=== PATIENT | female | born 1935 | race Caucasian/White ===

== ENCOUNTER → 2017-10-13 | Outpatient (CLI) | payer OTHER ==
[~2017-10-13] MED LIST: ASPI325 PO; ASPI81CH PO; AZIT250 PO; AZO CRANBERRY PO; BISA10S PR; BONIVA PO; CALC1.25T PO; CALCA500CH PO; CEFU250 PO; CELE100 PO; CELE200 PO; CEPH500 PO; CHOL10002 PO; ESOM20 PO; FISH1000 PO; FOLI1 PO; GABA100 PO; GABA300 PO; HYDACE5 PO; HYDCHL25 PO; HYDSUL200 PO; IBAN2.5 PO; LISI5 PO; METO25 PO; METO25ER PO; METTREX2.5 PO; MISO100 PO; OMEP20ER PO; POTA10T PO; PRED1 PO; PRED10 PO; TOBR.3OPSO OP; TOCO1000 PO; TORS10 PO; TRIHYD253B PO; VIACTIV SOFT C1 EAC1 PO; calcium PO
== END | disposition home or self-care (01) ==
LOC: LAB EV 13:00 → LAB SHORT 13:00
DX: N39.0 Urinary tract infection, site not specified (principal)
CPT/HCPCS: 87086

== ENCOUNTER 2018-07-24 12:37 | Emergency (ER) | payer OTHER ==
[~2018-07-24] VITALS: Ht 162.6 cm; Wt 65.8 kg
== END 2018-07-24 14:24 | disposition home or self-care (01) ==
LOC: ER 12:37
DX: S81.811A Laceration without foreign body, right lower leg, initial encounter (principal); W22.8XXA Striking against or struck by other objects, initial encounter; Z88.6 Allergy status to analgesic agent; Z88.0 Allergy status to penicillin; Z88.2 Allergy status to sulfonamides; Z88.1 Allergy status to other antibiotic agents; Z79.899 Other long term (current) drug therapy; Z79.52 Long term (current) use of systemic steroids; Z79.82 Long term (current) use of aspirin; I10 Essential (primary) hypertension
CPT/HCPCS: 12002; 90471; 90714; 99282-25

== ENCOUNTER 2018-07-26 06:13 | Observation (INO) | payer OTHER ==
[~2018-07-26] VITALS: Ht 162.6 cm; Wt 59.0 kg
[2018-07-26 06:56] LABS: BASOPHILS ABSOLUTE AUTO 0.03 K/mm3 (0.00-0.23); BASOPHILS PERCENT AUTO 0 % (0-2); EOSINOPHILS ABSOLUTE AUTO 0.64 K/mm3 (0.00-0.68); EOSINOPHILS PERCENT AUTO 7 % (0-6); IMMATURE GRAN ABSOLUTE AUTO 0.04 K/mm3 (0.00-0.10); IMMATURE GRAN PERCENT AUTO 0 % (0-1); LYMPHOCYTES ABSOLUTE AUTO 0.82 K/mm3 (0.84-5.20); LYMPHOCYTES PERCENT AUTO 9 % (21-46); MONOCYTES ABSOLUTE AUTO 0.59 K/mm3 (0.16-1.47); MONOCYTES PERCENT AUTO 6 % (4-13); Mean Corpuscular HGB 34.2 pg (26.0-34.0); Mean Corpuscular HGB Conc 31.6 g/dL (31.5-36.5); Mean Corpuscular Volume 108 fL (80-100); Mean Platelet Volume 9.9 fL (9.1-12.4); NEUTROPHILS ABSOLUTE AUTO 7.04 K/mm3 (1.96-9.15); NEUTROPHILS PERCENT AUTO 77 % (41-73); Platelet Count 331 K/mm3 (150-400); RDW Coefficient Variation 16.1 % (11.7-14.2); RDW Standard Deviation 61.2 fL (35.1-46.3); Red Blood Cell Count 1.46 M/mm3 (3.80-5.20); White Blood Cell Count 9.16 K/mm3 (4.00-11.30)
[2018-07-26 07:04] LABS: Hematocrit 15.8 % (33.0-51.0)
[2018-07-26 07:18] LABS: Albumin, Blood 2.8 g/dL (3.4-5.0); Albumin/Globulin Ratio 0.7 (0.8-1.8); Bilirubin, Total 0.4 mg/dL (0.1-1.0); Bun/Creatinine Ratio 25.2 (12.0-20.0); Calcium, Blood 9.3 mg/dL (8.5-10.1); Creatinine, Blood 1.15 mg/dL (0.40-1.00); Globulin, Blood 3.9 g/dL (2.2-4.0); Potassium, Blood 4.1 mmol/L (3.5-5.5); Total Protein, Blood 6.7 g/dL (6.4-8.2); Troponin I 0.257 ng/mL (0.000-0.040)
[2018-07-26 07:53] LABS: IMMATURE RETIC FRACTION 18.2 % (2.3-16.0); RETIC HGB EQUIVALENT 42.7 pg (28.20-36.60); RETICULOCYTE COUNT PERCENT 1.68 % (0.50-2.50)
--- NOTE | 2018-07-26 16:06 | NUR ---
SPOKE TO DR PLASCENCIA- PT HAS ORDER FOR ANTI-EMBOLIC STOCKINGS BUT PT HAS BLOODY BLISTERS AND A WOUND ON HER BLE. PER DR PLASCENCIA DC ORDER FOR ANTIEMBOLIC STOCKINGS. SHE WILL REEVALUATE PT DVT PROPHILAXIS. PT BLOOD NEARLY COMPLETE AT THIS TIME. DR WILL ORDER REPEAT H&H AFTER TRANSFUSION IS COMPLETE.
[2018-07-26 17:33] LABS: Hematocrit 33.7 % (33.0-51.0); Hemoglobin 10.9 g/dL (11.5-16.0)
--- NOTE | 2018-07-26 18:14 | NUR ---
SHIFT SUMMARY- PT ADMITTED THROUGH THE ED. PER REPORT PT HGB WAS 5.0. 2 UNITS OF BLOOD WERE ORDERED HEATH TRANSFUSED, FOLLOW UP HGB IS 10.9 AFTER 2 UNITS OF PRBCS
--- NOTE | 2018-07-26 18:18 | NUR ---
SHIFT SUMMARY- CONTINUED SPOKE TO DR PLASCENCIA ABOUT PT LAB RESULTS. PLAN IS FOR PT TO HAVE REPEAT LABS IN THE MORNING AND THEN D/C HOME IF LEVELS ARE HOLDING STABLE. PT ALERT AND ORIENTED BUT FORGETFUL, POOR HISTORIAN, SON HAS POA AND PLANS TO BRING HARD COPY TOMORROW FOR MEDICAL RECORDS. PT HAS THE CALL LIGHT IN REACH BUT DOES NOT USE IT, RISK FOR SKIN BREAKDOWN, PT IS A Q2 TURN, MEPILEX PLACED ON COCCYX TO PREVENT FURTHER BREAKDOWN, SEE PICS IN CHART.
--- NOTE | 2018-07-27 04:52 | NUR ---
SHIFT SUMMARY A/O, ABLE TO MAKE NEEDS KNOWN. FORGETFUL AT TIMES. COOPERATIVE WITH CARE. ANSWERS QUESTIONS APPROPRIATELY. NO C/O PAIN/DISCOMFORT. VSS/AFEBRILE. APPEARED TO REST OFF AND ON THROUGHOUT SHIFT. NO ACUTE CHANGES NOTED OVERNIGHT. BED IN LOWEST POSITION. CALL LIGHT AND BELONGINGS WITHIN REACH. WCTM. REPORT TO ONCOMING RN.
[2018-07-27 05:00] LABS: BASOPHILS ABSOLUTE AUTO 0.04 K/mm3 (0.00-0.23); BASOPHILS PERCENT AUTO 1 % (0-2); EOSINOPHILS ABSOLUTE AUTO 0.13 K/mm3 (0.00-0.68); EOSINOPHILS PERCENT AUTO 3 % (0-6); Hematocrit 33.6 % (33.0-51.0); Hemoglobin 10.8 g/dL (11.5-16.0); IMMATURE GRAN ABSOLUTE AUTO 0.02 K/mm3 (0.00-0.10); IMMATURE GRAN PERCENT AUTO 0 % (0-1); LYMPHOCYTES ABSOLUTE AUTO 0.65 K/mm3 (0.84-5.20); LYMPHOCYTES PERCENT AUTO 12 % (21-46); MONOCYTES ABSOLUTE AUTO 0.47 K/mm3 (0.16-1.47); MONOCYTES PERCENT AUTO 9 % (4-13); Mean Corpuscular HGB 32.4 pg (26.0-34.0); Mean Corpuscular HGB Conc 32.1 g/dL (31.5-36.5); Mean Platelet Volume 9.5 fL (9.1-12.4); NEUTROPHILS ABSOLUTE AUTO 3.96 K/mm3 (1.96-9.15); NEUTROPHILS PERCENT AUTO 75 % (41-73); Platelet Count 205 K/mm3 (150-400); RDW Coefficient Variation 19.4 % (11.7-14.2); RDW Standard Deviation 69.4 fL (35.1-46.3); Red Blood Cell Count 3.33 M/mm3 (3.80-5.20); White Blood Cell Count 5.27 K/mm3 (4.00-11.30)
[2018-07-27 05:02] LABS: Mean Corpuscular Volume 101 fL (80-100)
[2018-07-27 05:14] LABS: Bun/Creatinine Ratio 27.1 (12.0-20.0); Calcium, Blood 9.4 mg/dL (8.5-10.1); Creatinine, Blood 1.07 mg/dL (0.40-1.00); Potassium, Blood 4.5 mmol/L (3.5-5.5)
--- NOTE | 2018-07-27 12:15 | NUR ---
Upon receiving a spiritual care referral, this fha underwriter visited Patient and found her lying in bed and alert.Patient was kind and welcoming and openly shared about her many years of loss and grief, about her current medical issues and about the strength she receives from her levar. I listened empathically, reinforced helpful attitudes and practices, provided companionship and prayer. Patient responded well and showed signs of an elevated mood. I continue to remain available to patient.
--- NOTE | 2018-07-27 13:07 | NUR ---
DISCHAGRE SUMMARY PT DISCHARGED TO HOME VIA [facility] TRANSPORT. PT LEFT ROOM AT 1305 WITH TRANSPORTER VIA WHEELCHAIR. DISCHARGE TEACHING COMPLETED WITH PT PRIOR TO [facility] ARRIVAL. NO IV IN PLACE, NEISHA RETURNED ALL QUESTIONS ANSWERED. TRANSPORTER INSTRUCTED TO RETURN LIFT SLING. PT STATES THAT THEY WILL USE HER LIFT AT HOME TO TRANSFER HER FROM TRANSPORTER WHEELCHAIR TO HER OWN WHEELCHAIR AT HOME.
== END 2018-07-27 13:06 | disposition home or self-care (01) ==
LOC: ER 06:13 → MEDS 08:32 → ER 08:32 → MEDS 08:32 → ENPENDDIS 07-27 10:27 → MEDS 07-27 13:06
PROVIDERS: Emergency Medicine; ADMIT Hospitalist
DX: R07.9 Chest pain, unspecified (principal); D53.9 Nutritional anemia, unspecified; N17.9 Acute kidney failure, unspecified; I05.9 Rheumatic mitral valve disease, unspecified; E87.1 Hypo-osmolality and hyponatremia; R77.8 Other specified abnormalities of plasma proteins; I10 Essential (primary) hypertension; I25.10 Atherosclerotic heart disease of native coronary artery without angina pectoris; Z88.1 Allergy status to other antibiotic agents; Z88.6 Allergy status to analgesic agent; Z88.0 Allergy status to penicillin; Z88.2 Allergy status to sulfonamides; Z79.899 Other long term (current) drug therapy; Z79.82 Long term (current) use of aspirin; Z79.52 Long term (current) use of systemic steroids
CPT/HCPCS: 36415; 36430; 71046; 80048; 80053; 82272; 82607; 82746; 83690; 84484; 85014; 85018; 85025; 85045; 86850; 86900; 86901; 86923; 93005; 93010; 96374; 99285-25; C9113; G0378; J7030; J7050; J7512; P9016

== ENCOUNTER 2018-08-11 09:43 | Emergency (ER) | payer OTHER ==
[~2018-08-11] VITALS: Ht 152.4 cm; Wt 59.0 kg
== END 2018-08-11 10:41 | disposition home or self-care (01) ==
LOC: ER 09:43
DX: S81.811D Laceration without foreign body, right lower leg, subsequent encounter (principal); Z88.6 Allergy status to analgesic agent; Z88.0 Allergy status to penicillin; Z88.2 Allergy status to sulfonamides; Z88.1 Allergy status to other antibiotic agents; Z79.899 Other long term (current) drug therapy; Z79.52 Long term (current) use of systemic steroids; Z79.82 Long term (current) use of aspirin; I10 Essential (primary) hypertension

== ENCOUNTER 2018-10-20 09:29 | Emergency (ER) | payer OTHER ==
[~2018-10-20] VITALS: Ht 170.2 cm; Wt 54.4 kg
[2018-10-20 10:12] LABS: BASOPHILS ABSOLUTE AUTO 0.01 K/mm3 (0.00-0.23); BASOPHILS PERCENT AUTO 0 % (0-2); EOSINOPHILS ABSOLUTE AUTO 0.14 K/mm3 (0.00-0.68); EOSINOPHILS PERCENT AUTO 3 % (0-6); Hemoglobin 9.9 g/dL (11.5-16.0); IMMATURE GRAN ABSOLUTE AUTO 0.01 K/mm3 (0.00-0.10); IMMATURE GRAN PERCENT AUTO 0 % (0-1); LYMPHOCYTES ABSOLUTE AUTO 0.75 K/mm3 (0.84-5.20); LYMPHOCYTES PERCENT AUTO 14 % (21-46); MONOCYTES ABSOLUTE AUTO 0.59 K/mm3 (0.16-1.47); MONOCYTES PERCENT AUTO 11 % (4-13); Mean Corpuscular HGB 32.5 pg (26.0-34.0); Mean Corpuscular HGB Conc 31.9 g/dL (31.5-36.5); Mean Corpuscular Volume 102 fL (80-100); Mean Platelet Volume 9.6 fL (9.1-12.4); NEUTROPHILS ABSOLUTE AUTO 4.04 K/mm3 (1.96-9.15); NEUTROPHILS PERCENT AUTO 73 % (41-73); Platelet Count 219 K/mm3 (150-400); RDW Coefficient Variation 14.7 % (11.7-14.2); RDW Standard Deviation 54.8 fL (35.1-46.3); Red Blood Cell Count 3.05 M/mm3 (3.80-5.20); White Blood Cell Count 5.54 K/mm3 (4.00-11.30)
[2018-10-20 10:30] LABS: Alanine Aminotransfer (ALT/SGP 21 U/L (12-78); Albumin, Blood 2.9 g/dL (3.4-5.0); Albumin/Globulin Ratio 0.7 (0.8-1.8); Alk Phos 60 U/L (50-136); Anion Gap 4 mmol/L (6-16); Aspartate Aminotrans (AST/SGOT 18 U/L (12-37); Bilirubin, Total 0.4 mg/dL (0.1-1.0); Blood Urea Nitrogen 17 mg/dL (8-24); Bun/Creatinine Ratio 21.5 (12.0-20.0); CO2, Blood 30 mmol/L (21-32); Calcium, Blood 9.1 mg/dL (8.5-10.1); Chloride, Blood 100 mmol/L (98-108); Creatinine, Blood 0.79 mg/dL (0.40-1.00); Globulin, Blood 4.2 g/dL (2.2-4.0); Glomerular Filtration Rate >60 (60-); Glucose, Blood 92 mg/dL (70-99); Sodium, Blood 134 mmol/L (136-145); Total Protein, Blood 7.1 g/dL (6.4-8.2)
[2018-10-20 11:20] LABS: Source, Urine Catheter
[2018-10-20 11:42] LABS: Bilirubin, Urine Neg (Neg); Blood, Urine 4+ (Neg); Glucose Qualitative, Urine Neg (Neg); Ketones, Urine Neg (Neg); Leukocyte Esterase, Urine 1+ (Neg); Nitrite, Urine Neg (Neg); Protein, Urine Neg (Neg); Specific Gravity, Urine 1.005 (1.003-1.022); Urobilinogen, Urine NORM (Normal)
[2018-10-20 12:04] LABS: Appearance, Urine Clear (Clear); Color, Urine Yellow (P-Yellow)
[2018-10-20] MEDS ORDERED: Anti-Diarrheal2 MG (12:04)
[2018-10-20] MEDS ORDERED: Vitamin B-121000 MCG PO (12:04)
[2018-10-20 12:05] LABS: White Blood Cells, Urine 0-2 /hpf (0-5)
[2018-10-20] MEDS ORDERED: Prinivil10 MG PO (12:05)
[2018-10-20 12:06] LABS: Bacteria Rare /hpf; Red Blood Cells, Urine 0-2 /hpf (0-2); Squamous Epithelial Cells Rare /hpf (Few)
[2018-10-20] MEDS ORDERED: Mirtazapine7.5 MG PO (12:10)
[2018-10-20 13:34] LABS: Adenovirus F 40/41 Not Detected (NOT DETECT); Astrovirus Not Detected (NOT DETECT); Campylobacter Sp Not Detected (NOT DETECT); Cryptosporidium Not Detected (NOT DETECT); Cyclospora Cayetanensis Not Detected (NOT DETECT); E. Coli O157 Not Detected (NOT DETECT); Entamoeba Histolytica Not Detected (NOT DETECT); Enteroaggregative E. coli-EAEC Not Detected (NOT DETECT); Enteropathogenic E. coli-EPEC Not Detected (NOT DETECT); Enterotoxigenic E. coli-ETEC Not Detected (NOT DETECT); Giardia Lamblia Not Detected (NOT DETECT); Norovirus GI/GII Not Detected (NOT DETECT); Plesiomonas Shigelloides Not Detected (NOT DETECT); Rotavirus A Not Detected (NOT DETECT); Salmonella Sp Not Detected (NOT DETECT); Sapovirus Not Detected (NOT DETECT); Shiga Toxin-prod E. coli-STEC Not Detected (NOT DETECT); Shigella/Enteroin E. coli-EIEC Not Detected (NOT DETECT); Vibrio Cholerae Not Detected (NOT DETECT); Vibrio Sp Not Detected (NOT DETECT); Yersinia Enterocolitica Not Detected (NOT DETECT)
== END 2018-10-20 14:10 | disposition home or self-care (01) ==
LOC: ER 09:29
PROVIDERS: Emergency Medicine
DX: R19.7 Diarrhea, unspecified (principal); E86.0 Dehydration; I10 Essential (primary) hypertension; M81.0 Age-related osteoporosis without current pathological fracture; Z88.0 Allergy status to penicillin; Z88.2 Allergy status to sulfonamides; Z88.1 Allergy status to other antibiotic agents; Z88.6 Allergy status to analgesic agent; Z79.52 Long term (current) use of systemic steroids; Z79.899 Other long term (current) drug therapy; Z79.82 Long term (current) use of aspirin
CPT/HCPCS: 0097U; 36415; 80053; 81001; 85025; 87086; 99284; J7030